=== PATIENT | female | born 1990 | race Caucasian/White ===

== ENCOUNTER 2023-11-09 19:56 | Emergency (ER) | payer BC, SELFPAY ==
[2023-11-09 20:01] VITALS: BP 135/99
[2023-11-09 21:32] VITALS: BMI 36.3
[2023-11-09] MEDS: NSS 1000 IV (21:33)
[2023-11-09 21:38] LABS: % Basophils 0.3 % (0-2); % Eosinophils 0.2 % (0-6); % Immature Granulocytes 0.5 % (0-0.5); % Lymphocytes 1.9 % (20.5-51.1); % Monocytes 4.1 % (1.7-9.3); Absolute Basophils 0.1 10^3/uL (0-0.2); Absolute Immature Granulocytes 0.1 10^3/uL (0-0.05); Absolute Lymphocytes 0.4 10^3/uL (1.2-3.4); Absolute Neutrophils 22.1 10^3/uL (1.4-6.5); Hematocrit 44.5 % (37.0-47.0); Hemoglobin 15.8 g/dL (12.0-16.0); Mean Corp Hgb Conc. 35.5 g/dL (33.0-37.0); Mean Corpuscular Hgb 29.9 pg (27.0-31.0); Mean Corpuscular Volume 84.3 fL (81.0-99.0); Mean Platelet Volume 9.4 fL (7.4-10.4); Nucleated Red Blood Cells % 0 %; Platelet Count 421 10^3/uL (130-400); Red Blood Cell Count 5.28 10^6/uL (4.20-5.40); Red Cell Dist. Width 11.9 % (11.5-14.5); White Blood Cell Count 23.7 10^3/uL (4.8-10.8)
[2023-11-09 21:55] LABS: HCG, Serum Qualitative Screen Negative
[2023-11-09 21:58] LABS: ALT (SGPT) 24 U/L (0-35); AST (SGOT) 26 U/L (14-36); Alkaline Phosphatase 123 U/L (38-126); Blood Urea Nitrogen 17 mg/dl (7-17); Calcium 10.2 mg/dl (8.4-10.2); Carbon Dioxide 22 mmol/L (22-30); Chloride 104 mmol/L (98-107); Estimated Creatinine Clearance 86 ml/min; Glucose 170 mg/dl (70-99); Lipase 67 U/L (23-300); Sodium 137 mmol/L (135-145); Total Bilirubin 0.7 mg/dl (0.2-1.3); Total Protein 8.5 g/dl (6.3-8.2); eGFR > 60.00
[2023-11-09] MEDS: ZOFRAN 4 MG IV (22:06)
--- NOTE | 2023-11-09 22:26 | ED.GENMED ---
History of Present Illness
General
Chief Complaint: Abdominal Symptoms
Source: patient
Exam Limitations: none
Time Seen by Provider: 11/09/23 21:19
Nursing documentation reviewed up to this point in time: agreed with
Travel History
Have you had any contact with someone who has COVID-19?: No
Do you have any symptoms of coronavirus? Fever > 100 degrees, chills, cough, shortness of breath, sore throat, loss of taste or smell, muscle aches, or headache?: No
History of Present Illness
History of Present Illness:
33-year-old female with no significant past medical history, states sudden onset of vomiting at 4:45 this afternoon, vomited numerous times, last emesis was 1/2-hour ago. She also developed diarrhea at 515, nonbloody but watery, last episode was 1
hour ago. No recent antibiotic use. No known sick contacts. No known exposures. She states she is feeling much better now does not feel nauseous. She denies fever.
Past History
Past History
ED Past Medical History: Psychiatric (ADHD on Adderall and Vyvanse) and Other (On Ozempic injections weekly, had her third one today)
ED Past Surgical History: None
Social History
Tobacco: Non-smoker
Personal: Single
Living: alone
Employment: Employed
Review of Systems
Review of Systems
Allergies reviewed?: Yes
All Other Systems: ROS reviewed and negative except as documented in HPI and ROS
Constitutional: Denies fever
EENT: Denies sore throat
Respiratory: Denies trouble breathing
ABD/GI: Reports abdominal pain, nausea, vomiting and diarrhea; Denies bloody stools or black stools
: Denies dysuria, difficulty voiding or urgency
Musculoskeletal: Reports no symptoms
Skin: Reports no symptoms
Neurological: Reports no symptoms
Phy Exam
Physical Exam
Physical Exam:
GENERAL: No acute distress. A&Ox3.
CONSTITUTIONAL: Afebrile.
EYES: Clear, conjunctivae normal
ENMT: moist mucus membranes
RESPIRATORY: Regular respirations, nonlabored, lungs clear.
CARDIOVASCULAR: Regular rate and rhythm, no murmurs, no rubs.
GI: Soft, mild tenderness epigastric area, the rest the abdomen is nontender, nondistended, normal BS
MUSCULOSKELETAL: Moves with ease. Well perfused.
SKIN: Warm, dry, pink
PSYCH: Normal mood and affect. Well kept, interactive and appropriate
NEUROLOGIC: Awake, alert and oriented. No focal neurological deficits
Course
Orders/Labs/Results
Orders:
Orders
11/09/23 20:06
IV Insert/Care/Rem.- Treatment PRN
Test Result ONCE
11/09/23 21:15
Complete Blood Count/With Diff Urgent
Comprehensive Metabolic Panel Urgent
HCG, Serum Qualitative Screen Urgent
Lipase Urgent
11/09/23 21:33
0.9% Sodium Chloride 1000 ml [Nss] 1,000 ml IV BOLUS
11/09/23 21:57
Ondansetron Injectable [Zofran] 4 mg IV NOW STA
Abnormal Lab Results
11/09/23
21:15
WBC 23.7 H 10^3/uL
(4.8-10.8)
Plt Count 421 H 10^3/uL
(130-400)
Abs Immat Gran (auto) 0.1 H 10^3/uL
(0-0.05)
Absolute Neuts (auto) 22.1 H 10^3/uL
(1.4-6.5)
Absolute Lymphs (auto) 0.4 L 10^3/uL
(1.2-3.4)
Absolute Monos (auto) 1.0 H 10^3/uL
(0.1-0.6)
Neutrophils % 93.0 H %
(42.2-75.2)
Lymphocytes % 1.9 L %
(20.5-51.1)
Glucose 170 H mg/dl
(70-99)
Total Protein 8.5 H g/dl
(6.3-8.2)
11/09/23 21:15
11/09/23 21:15
Vital Signs
Initial and Last Documented VS:
Initial Vital Signs
Temp Pulse Resp BP Pulse Ox
97.0 F 109 22 135/99 99
11/09/23 20:01 11/09/23 20:01 11/09/23 20:01 11/09/23 20:01 11/09/23 20:01
Last Documented Vital Signs
Temp Pulse Resp BP Pulse Ox
97.0 F 99 16 128/82 100
11/09/23 20:01 11/09/23 22:44 11/09/23 22:44 11/09/23 22:44 11/09/23 22:44
MDM/Problems Addressed
Differential Diagnosis Includes:
Medication side effect, viral gastroenteritis,
MDM/Problems Addressed:
33-year-old female with hx ADHD on Vyvanse, had her 3rd weekly Ozempic injection earlier today, , states sudden onset of vomiting at 4:45 this afternoon, vomited numerous times, last emesis was 1/2-hour ago. She also developed diarrhea at 515,
nonbloody but watery, last episode was 1 hour ago. No recent antibiotic use. No known sick contacts. No known exposures. She states she is feeling much better now does not feel nauseous. She denies fever.
Afebrile
NAD
No risk for C. difficile
11/09/2023 2227 PM
CBC: WBC 23.7 with neutrophilia
CMP: No clinically significant abnormality
Lipase normal
hCG negative
No vomiting or diarrhea since arrival
Mild epigastric tenderness to palpation, otherwise abdomen is benign. Labs unremarkable, no indication of gallbladder disease, no indication for ultrasound or abdominal CAT scan at this point.
Most likely viral gastroenteritis. Improving.
Rx for Zofran sent to her pharmacy, patient is comfortable going home. She will stay with her mother mirtha
*Critical Care Note
Total Time (30-74mins, 75-104mins- exclusive of procedures): Not Applicable
ED Attending Note
-
Portions of this chart may have been created with voice recognition software.� Occasional wrong word or��sound alike� substitutions may have occurred due to the inherent limitations of voice recognition software.
Discharge Plan
Departure
Patient Disposition: Home (Routine Discharge)
Date of Disposition: 11/09/23
Time of Disposition: 22:43
Patient with high blood pressure during this ER visit?: Yes
Condition: Good
Discharge Problem:
Nausea and vomiting, Diarrhea
Instructions: Diarrhea in adolescents and adults, Nausea and Vomiting, Adult (DC), Abdominal Pain
Referrals:
[facility] [Other] - Follow up in 2-3 days
NONE,* [Family Provider] -
Activity Restrictions/Additional Instructions:
As we discussed, the only abnormality in your blood work is a high white blood cell count which is most likely a stress reaction to your severe vomiting.
There is no indication of gallbladder disease or any indication for ultrasound or CAT scan of the abdomen at this time.
You most likely have a viral gastroenteritis which seems to be improving. I sent a prescription to your pharmacy for Zofran to use if needed for nausea
You may try Imodium as directed on the label if your diarrhea continues tomorrow
Return here immediately for bloody diarrhea, worsening abdominal pain, fever above 100.5 or feeling sicker in any way.
Have your CBC rechecked in 2-3 days to make sure your WBC's are trending down.
Interventions
Interventions:
*Risk Screen - Suicide Last Done: 11/09/23 20:01
*General Assessment Last Done: 11/09/23 20:01
*Neglect/Abuse Screening Last Done: 11/09/23 20:01
ED- Fall Risk Assessment Last Done: 11/09/23 20:01
*ED COVID-19 Vaccine History Last Done: 11/09/23 20:01
*Nursing Disposition Last Done: 11/09/23 23:05
[id number] Assessment Last Done: 11/09/23 22:00
Discharge Date and Time
Discharge Date/Time: 11/09/23 23:05
[2023-11-09 22:44] VITALS: BP 128/82
--- NOTE | 2023-11-09 22:45 | EDRN ---
Robyn harden [employer] back in to reassess patient who will be discharged home
== END 2023-11-09 23:05 | disposition home or self-care (01) ==
LOC: EMR 19:56
PROVIDERS: EMERGENCY PHYSICIAN Emergency Medicine
DX: R11.2 Nausea with vomiting, unspecified (principal); R19.7 Diarrhea, unspecified; F90.9 Attention-deficit hyperactivity disorder, unspecified type
CPT/HCPCS: 99283; 96374; 96361; 80053; 83690; 84703; 85025